=== PATIENT | female | born 1985 | race Caucasian/White ===

== ENCOUNTER 2016-07-30 19:03 | Emergency (ER) | payer SELFPAY ==
[2016-07-30 19:09] VITALS: BP 111/71; PULSE 70; RESP 18; TEMP 98.5; O2SAT 100
--- NOTE | 2016-07-30 19:12 | ED PDOC ---
HPI: General Adult Time Seen by Provider: 07/30/16 19:10 Chief Complaint (Nursing): Upper Extremity Problem/Injury Chief Complaint (Provider): wrist pain, knee pain History Per: Patient Past Medical History Vital Signs: Last Vital Signs Temp 98.5 F 07/30/16 19:07 Pulse 70 07/30/16 19:07 Resp 18 07/30/16 19:07 BP 111/71 07/30/16 19:07 Pulse Ox 100 07/30/16 19:07 - Allergies Allergies/Adverse Reactions: Allergies Allergy/AdvReac Type Severity Reaction Status Date / Time No Known Allergies Allergy Verified 07/30/16 19:07 - ECG O2 Sat by Pulse Oximetry: 100
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
== END 2016-07-30 20:45 | disposition home or self-care (01) ==
LOC: H.ER 19:03
DX: S63.501A Unspecified sprain of right wrist, initial encounter (principal); S43.401A Unspecified sprain of right shoulder joint, initial encounter; S83.91XA Sprain of unspecified site of right knee, initial encounter; W01.0XXA Fall on same level from slipping, tripping and stumbling without subsequent striking against object, initial encounter

== ENCOUNTER 2018-05-05 16:53 | Emergency (ER) | payer SELFPAY ==
[2018-05-05 17:13] VITALS: BP 127/84; PULSE 76; RESP 19; TEMP 98; O2SAT 100
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
--- NOTE | 2018-05-06 10:01 | CT ---
Date of service: 05/05/2018 PROCEDURE: CT Thoracic Spine without contrast HISTORY: r/o fx COMPARISON: None available. TECHNIQUE: Axial computed tomography images were obtained of the thoracic spine without intravenous contrast. Coronal and sagittal reformatted images were created and reviewed. Radiation dose: Total exam DLP = 718.55 mGy-cm. This CT exam was performed using one or more of the following dose reduction techniques: Automated exposure control, adjustment of the mA and/or kV according to patient size, and/or use of iterative reconstruction technique. FINDINGS: VERTEBRAE: Unremarkable. No fracture. Normal alignment. DISCS/SPINAL CANAL/NEURAL FORAMINA: Within the limits of the CT technique, no disc herniation seen. No central canal or neural foraminal stenosis.. PARASPINAL SOFT TISSUES: Unremarkable. OTHER FINDINGS: Unremarkable. IMPRESSION: Unremarkable CT of the thoracic spine.
== END 2018-05-05 20:00 | disposition home or self-care (01) ==
LOC: SUPCPDRO 16:53 → H.ER 16:53
DX: M54.30 Sciatica, unspecified side (principal)